=== PATIENT | female | born 1985 | race Caucasian/White ===

== ENCOUNTER 2023-12-21 18:54 | Outpatient (RCR) | payer BC, SELFPAY | END 2024-01-04 06:38 | disposition home or self-care (01) | LOC: RPT 18:54 | PROVIDERS: ATTENDING PHYSICIAN Obstetrics & Gynecology | DX: N39.3 Stress incontinence (female) (male) (principal); M62.81 Muscle weakness (generalized); Z73.6 Limitation of activities due to disability | CPT/HCPCS: 97014; 97110; 97112 ==

== ENCOUNTER 2024-02-01 19:18 | Outpatient (RCR) | payer BC, SELFPAY | END 2024-02-01 23:59 | disposition home or self-care (01) | LOC: RPT 19:18 | PROVIDERS: Obstetrics & Gynecology; ATTENDING PHYSICIAN Surgery | DX: N39.3 Stress incontinence (female) (male) (principal); M62.81 Muscle weakness (generalized); Z73.6 Limitation of activities due to disability | CPT/HCPCS: 97110; 97112 ==

== ENCOUNTER 2024-02-14 17:53 | Outpatient (RCR) | payer BC, SELFPAY | END 2024-02-14 23:59 | disposition home or self-care (01) | LOC: RPT 17:53 | PROVIDERS: ATTENDING PHYSICIAN Surgery | DX: N39.3 Stress incontinence (female) (male) (principal); M62.81 Muscle weakness (generalized); Z73.6 Limitation of activities due to disability | CPT/HCPCS: 97014; 97110; 97112; 97140; 97535 ==

== ENCOUNTER 2024-03-21 19:06 | Outpatient (RCR) | payer BC, SELFPAY | END 2024-03-21 23:59 | disposition home or self-care (01) | LOC: RPT 19:06 | PROVIDERS: ATTENDING PHYSICIAN Surgery | DX: N39.3 Stress incontinence (female) (male) (principal); M62.81 Muscle weakness (generalized); Z73.6 Limitation of activities due to disability | CPT/HCPCS: 97110; 97112 ==

== ENCOUNTER 2024-04-25 19:05 | Outpatient (RCR) | payer BC, SELFPAY | END 2024-04-25 23:59 | disposition home or self-care (01) | LOC: RPT 19:05 | PROVIDERS: ATTENDING PHYSICIAN Surgery | DX: N39.3 Stress incontinence (female) (male) (principal); M62.81 Muscle weakness (generalized); Z73.6 Limitation of activities due to disability | CPT/HCPCS: 97014; 97110; 97112; 97140; 97535 ==

== ENCOUNTER 2024-06-27 17:48 | Outpatient (RCR) | payer BC, SELFPAY | END 2024-06-27 23:59 | disposition home or self-care (01) | LOC: RPT 17:48 | PROVIDERS: ATTENDING PHYSICIAN Surgery | DX: N39.3 Stress incontinence (female) (male) (principal); Z73.6 Limitation of activities due to disability; M62.81 Muscle weakness (generalized) | CPT/HCPCS: 97014; 97110; 97112 ==

== ENCOUNTER 2024-08-01 19:09 | Outpatient (RCR) | payer BC, SELFPAY | END 2024-08-01 23:59 | disposition home or self-care (01) | LOC: RPT 19:09 | PROVIDERS: ATTENDING PHYSICIAN Surgery | DX: N39.3 Stress incontinence (female) (male) (principal); Z73.6 Limitation of activities due to disability; M62.81 Muscle weakness (generalized) | CPT/HCPCS: 97110; 97112; 97535 ==

== ENCOUNTER 2024-08-20 18:13 | Outpatient (RCR) | payer BC, SELFPAY | END 2024-08-20 23:59 | disposition home or self-care (01) | LOC: RPT 18:13 | PROVIDERS: ATTENDING PHYSICIAN Surgery | DX: N39.3 Stress incontinence (female) (male) (principal); Z73.6 Limitation of activities due to disability; M62.81 Muscle weakness (generalized) | CPT/HCPCS: 97110; 97112 ==